=== PATIENT | female | born 1990 | race African-American/Black ===

== ENCOUNTER → 2016-08-01 | Outpatient (CLI) | payer OTHER ==
[~2016-08-01] VITALS: Ht 172.7 cm; Wt 68.2 kg
[2016-08-01 13:37] VITALS: BP 150/96; PULSE 87
[2016-08-01 15:08] VITALS: BP 132/99; PULSE 80
== END ==
LOC: COL.RAD 13:18
DX: E04.2 Nontoxic multinodular goiter (principal)
CPT/HCPCS: 13756